=== PATIENT | male | born 1985 | race Caucasian/White ===

== ENCOUNTER 2018-05-11 03:55 | Emergency (ER) | payer OTHER, BC ==
[2018-05-11 04:02] VITALS: BP 125/83
--- NOTE | 2018-05-11 04:23 | ER Document Report ---
ED ENT - General TRAVEL OUTSIDE OF THE [place] IN LAST 30 DAYS: No - General Chief Complaint: Ear Pain Stated Complaint: EARACHE Time Seen by Provider: 05/11/18 04:09 Notes: Patient is a 32-year-old male that comes emergency department for chief complaint of ear pain. He states that he has had sharp severe throbbing pain since Tuesday, this is the fourth day, he states that it was not getting better so he came in for evaluation. He reports a swelling sensation. He states he has been having some mild nausea today, he denies fevers or chills, he denies sore throat, he states he is getting intermittent headaches. He denies history of the same. He denies discharge from the ear, he does report hearing loss in the ear. He denies congestion, history of the same. He tried irrigating out his ear. He denies any daily medications, surgeries, or medical history. ( MEJIA MCCABE) - Related Data Allergies/Adverse Reactions: No Known Allergies Allergy (Unverified 05/11/18 03:56) Past Medical History - General Information source: Patient - Social History Smoking Status: Never Smoker Frequency of alcohol use: None Drug Abuse: None Lives with: Family Family History: Reviewed & Not Pertinent - Medical History Medical History: Negative Surgical Hx: Negative - Immunizations Hx Diphtheria, Pertussis, Tetanus Vaccination: Yes Review of Systems - Review of Systems Constitutional: No symptoms reported EENT: See HPI Cardiovascular: No symptoms reported Respiratory: No symptoms reported Gastrointestinal: No symptoms reported Genitourinary: No symptoms reported Male Genitourinary: No symptoms reported Musculoskeletal: No symptoms reported Skin: No symptoms reported Hematologic/Lymphatic: No symptoms reported Neurological/Psychological: See HPI Physical Exam - Vital signs Vitals: Temp Pulse Resp BP Pulse Ox 97.6 F 89 20 125/83 97 05/11/18 04:00 05/11/18 04:00 05/11/18 04:00 05/11/18 04:00 05/11/18 04:00 - Notes Notes: GENERAL: Alert, interacts well. No acute distress. HEAD: Normocephalic, atraumatic. EYES: Pupils equal, round, and reactive to light. Extraocular movements intact. ENT: Oral mucosa moist, tongue midline. Tenderness over the left tragus, swelling of the external canal, abnormal appearance of the tympanic membrane with erythema, swelling, and actually irregularity of the tympanic membrane as well. No drainage, bleeding, foreign body noted. Posterior auricular lymph nodes noted which are swollen and tender. Some tenderness and erythema with questionable swelling at the mastoid as well. Right ear is unremarkable. Oropharyngeal exam is unremarkable. NECK: Full range of motion. Supple. Trachea midline. LUNGS: Clear to auscultation bilaterally, no wheezes, rales, or rhonchi. No respiratory distress. HEART: Regular rate and rhythm. No murmur ABDOMEN: Soft, non-tender. Non-distended. Bowel sounds present in all 4 quadrants. EXTREMITIES: Moves all 4 extremities spontaneously. No edema, normal radial and dorsalis pedis pulses bilaterally. No cyanosis. BACK: no cervical, thoracic, lumbar midline tenderness. No saddle anesthesia, normal distal neurovascular exam. NEUROLOGICAL: Alert and oriented x3. Normal speech. [cranial nerves II through XII grossly intact]. PSYCH: Normal affect, normal mood. SKIN: Warm, dry, normal turgor. No rashes or lesions noted. (MEJIA MCCABE) Course - Re-evaluation Re-evalutation: 05/11/18 05:06 I was asked by the physician human resources office assistant, Mejia Mccabe, to come evaluate the patient for possible mastoiditis. CT scan was performed was negative. He does have just very slight swelling behind the ear. Most his tenderness is over the preauricular lymph node. He does not have any redness of the mastoid however he does have very mild tenderness to palpation. Feel this mastoiditis and is very early. Will obtain MRI this morning to evaluate further. MRI is negative patient will be treated with oral and auricular antibiotics. (MILTON ZAMUDIO) Patient uncomfortable, has tenderness over the tragus, otitis externa, otitis media, but he also has posterior cervical adenopathy and a questionable mastoid exam. There is some erythema and some swelling with tenderness over the mastoid area. Decision was made to proceed with CAT scan, this was discussed with patient. CAT scan unremarkable. On reevaluation mastoid actually does not appear as erythematous, possibly patient was rubbing this, however there is still some tenderness and swelling. Dr. Zamudio came to bedside and evaluated on my request, recommends MRI and if this is normal the patient be treated with eardrops and oral antibiotics. Patient is very agreeable with this plan, he will wait an hour or so for the cell technician to arrive for this study to be performed. Patient fed. Declines pain medication because he is hoping to go home if imaging is normal and he drove. Given ibuprofen. 05/11/18 07:05 Introduced to Balbian Tsang PA-C at bedside, pending MRI results. (MEJIA MCCABE) - Vital Signs Vital signs: Temp Pulse Resp BP Pulse Ox 97.6 F 89 20 125/83 97 05/11/18 04:00 05/11/18 04:00 05/11/18 04:00 05/11/18 04:00 05/11/18 04:00 Discharge - Discharge Clinical Impression: Left ear pain Otitis media Qualifiers: Otitis media type: suppurative Chronicity: acute Laterality: left Recurrence: not specified as recurrent Spontaneous tympanic membrane rupture: without spontaneous rupture Qualified Code(s): H66.002 - Acute suppurative otitis media without spontaneous rupture of ear drum, left ear Otitis externa Qualifiers: Otitis externa type: unspecified type Chronicity: acute Laterality: left Qualified Code(s): H60.502 - Unspecified acute noninfective otitis externa, left ear Condition: Stable Disposition: HOME, SELF-CARE Additional Instructions: Your examination shows infection in the middle ear and ear canal, imaging does not show any concerning findings. Take antibiotics as prescribed, use antibiotic drops as well (see prescription for dosing). Take ibuprofen for pain, take morphine if needed for severe pain. If symptoms continue follow-up with the ENT referral listed below, call to make your appointment. Return if you worsen including increased swelling, dizziness, vomiting, spiking fever, increased pain, or any other concerning or worsening symptoms. [facility] Address: [address] [place] [address] , [place] [address] Prescriptions: Morphine Sulfate [Morphine Ir 15 Mg Tablet] 15 mg PO Q4HP PRN #12 tablet PRN Reason: Amoxicillin Trihydrate [Amoxil 875 mg Tablet] 1 tab PO BID #20 tablet Neomy Sulf/Polymyx B Sulf/Hc [Cortisporin Otic Susp] 1 drop ASDIR #1 bottle Forms: Return to Work Referrals: LOCALMD,NO [NO LOCAL MD] - Follow up as needed
--- NOTE | 2018-05-11 04:47 | RADIOLOGY REPORT (SQ) ---
EXAM DESCRIPTION: CT HEAD WITHOUT IV CONTRAST COMPLETED DATE/TME: 05/11/2018 04:21 CLINICAL HISTORY: 32 years Male, eval for mastoiditis COMPARISON: None. TECHNIQUE: No contrast. Coronal and sagittal reformat. This exam was performed according to our departmental dose-optimization program, which includes automated exposure control, adjustment of the mA and/or kV according to patient size and/or use of iterative reconstruction technique. FINDINGS: No hemorrhage or infarct. No mass, mass effect, or midline shift. Small megacisterna magna/arachnoid cyst variant of the posterior fossa. Impacted molar at the left maxillary floor. Clear mastoid air cells, as queried. Brain and extra-axial structures appear otherwise intact. IMPRESSION: No acute findings.
[2018-05-11] MEDS ORDERED: AMOXICILLIN TRIHYDRATE 500 MG CAPSULE PO ONE (04:54)
[2018-05-11] MEDS ORDERED: CIPROFLOXACIN HCL/DEXAMETH OTIC DROP 7.5 ML AS ONE (04:54)
[2018-05-11] MEDS ORDERED: IBUPROFEN 800 MG TABLET PO ONE (06:03)
[2018-05-11] MEDS ORDERED: NEOMY SULF/POLYMYX B SULF/HC OTIC SUSP 10 ML AS ONE (06:18)
--- NOTE | 2018-05-11 08:26 | RADIOLOGY REPORT (SQ) ---
EXAM DESCRIPTION: MRI HEAD WITHOUT COMPLETED DATE/TIME: 05/11/2018 8:11 am REASON FOR STUDY: eval for possible mastoiditis headache, left ear pain for 3 days COMPARISON: CT brain 05/11/2018 TECHNIQUE: Multiplanar imaging includes non-contrasted T1, T2, FLAIR, and diffusion with ADC map seq uences. Images stored on PACS. LIMITATIONS: None. FINDINGS: On the axial T2 and axial FLAIR images, there is a small amount of fluid in the left middl e ear cavity, and fluid throughout the left mastoid air cells. . No external auditory canal soft ti ssue swelling. 4 mm left occipital scalp lymph node. No signal abnormalities in the left inferior t emporal lobe. Findings discussed with Martha in the emergency room. ANATOMY: No developmental anomalies. Normal vascular flow voids. Pituitary fossa normal. CSF SPACES: Normal in size and contour. No hemorrhage. CEREBRUM: Sulci and gyri normal in size and contour. Normal white matter signal on FLAIR imaging. No evidence of hemorrhage, mass, or extraaxial fluid collection. POSTERIOR FOSSA: No signal alteration. No hemorrhage. No edema, masses or mass effect. Internal chin tory canals, cerebello-pontine angles, mastoids normal. DIFFUSION IMAGING: Negative for acute or sub-acute infarction. ORBITS: No masses. Globes normal. PARANASAL SINUSES: No fluid levels. Mucosa normal. OTHER: No nasopharyngeal mass. IMPRESSION: Left-sided mastoid and middle ear fluid. No acute intracranial abnormalities. EVIDENCE OF ACUTE STROKE: NO. TECHNICAL DOCUMENTATION: JOB ID: [id number]- All Rights Reserved Reading location - IP/workstation name: [email or web address]
[2018-05-11] MEDS ORDERED: LIDOCAINE 2% URO-JET 5 ML KIT MM ONE (08:36)
== END 2018-05-11 08:55 | disposition home or self-care (01) ==
LOC: ER 03:55
DX: H66.002 Acute suppurative otitis media without spontaneous rupture of ear drum, left ear (principal); H60.502 Unspecified acute noninfective otitis externa, left ear; H92.02 Otalgia, left ear; R11.0 Nausea; R51 Headache
CPT/HCPCS: 99283; 70551; 70450; J3490 ×2